=== PATIENT | male | born 2005 | race Caucasian/White ===

== ENCOUNTER 2024-11-30 04:05 | Emergency (ER) | payer SELFPAY ==
[2024-11-30] MEDS ORDERED: diphenhydrAMINE 25 MG CAP ONE (04:53)
[2024-11-30] MEDS ORDERED: diphenhydrAMINE 12.5 MG/5 ML UDCUP ONE (04:54)
== END 2024-11-30 05:09 | disposition home or self-care (01) ==
LOC: ERS 04:05
DX: S06.0X0A Concussion without loss of consciousness, initial encounter (principal); F17.290 Nicotine dependence, other tobacco product, uncomplicated; W22.8XXA Striking against or struck by other objects, initial encounter
CPT/HCPCS: 99283; Q0162; Q0163